=== PATIENT | female | born 1985 | race Two or more races ===

== ENCOUNTER 2020-12-09 08:25 | Outpatient (CLI) | payer OTHER | END 2020-12-09 08:31 | disposition home or self-care (01) | LOC: RX STUDY 08:25 | DX: N97.9 Female infertility, unspecified (principal) ==

== ENCOUNTER 2024-02-25 08:41 | Outpatient (CLI) | payer OTHER | END 2024-02-25 08:53 | disposition home or self-care (01) | LOC: SONOGRAMA 08:41 | DX: N84.0 Polyp of corpus uteri (principal) ==